=== PATIENT | female | born 1995 | race Caucasian/White ===

== ENCOUNTER 2025-04-10 12:24 | Emergency (ER) | payer BC ==
[~2025-04-10] VITALS: Ht 165.1 cm; Wt 68.0 kg
[2025-04-10 13:17] LABS: PLATELET COUNT (AUTO) 240 K/uL (150-450); RED BLOOD CELL COUNT(AUTO) 4.29 MIL/uL (4.0-5.2); RED CELL DISTRIBUTION WIDTH 12.8 % (11.5-15.0); WHITE BLOOD COUNT (AUTO) 7.4 K/uL (4.3-11.0)
[2025-04-10 13:24] LABS: CALCIUM, SERUM 8.5 mg/dL (8.5-10.1); CREATININE 0.8 mg/dL (0.6-1.3); SODIUM SERUM 136.0 mmol/L (136-145); UREA NITROGEN, BLOOD 13.0 mg/dL (7-18)
[2025-04-10 13:49] VITALS: BP 120/84; TEMP 97.6; O2SAT 99
[2025-04-10 16:28] LABS: CREATINE KINASE, TOTAL 59.0 U/L (26-192)
== END 2025-04-10 13:50 | disposition home or self-care (01) ==
LOC: ER 12:36
DX: M62.81 Muscle weakness (generalized) (principal); R51.9 Headache, unspecified
CPT/HCPCS: 36415; 70450-TC; 80048-TC; 82550-TC; 83735-TC; 84439-TC; 84443-TC; 85025-TC